=== PATIENT | female | born 1980 | race Two or more races ===

== ENCOUNTER 2019-06-27 09:25 | Emergency (ER) | payer OTHER ==
[~2019-06-27] VITALS: Ht 154.9 cm; Wt 65.3 kg
[~2019-06-27 09:25] MED LIST: DEXL60CA3
--- NOTE | 2019-06-27 09:37 | NUR ---
RATNA, C/O FLU LIKE SYMPTOMS X1 AND BILATERAL NECK PAIN, TO ER BED 7, HOOKED TO MONITOR, CHANGED TO HOSP [facility], PROVIDED W WARM BLANKET, AWAITING MD WINN
[2019-06-27] MEDS ORDERED: ALBUTEROL FS 2.5 MG/3 ML VIAL.NEB NEB ONE (10:00)
[2019-06-27] MEDS ORDERED: IPRATROPIUM NEB FS 0.5 MG/2.5 ML AMPUL.NEB NEB ONE (10:00)
[2019-06-27] MEDS ORDERED: ALBUTEROL FS 2.5 MG/3 ML VIAL.NEB ONE (10:09)
[2019-06-27] MEDS ORDERED: IPRATROPIUM NEB FS 0.5 MG/2.5 ML AMPUL.NEB ONE (10:09)
--- NOTE | 2019-06-27 11:00 | NUR ---
Patient discharged to home in stable condition. Written and verbal after care instructions given. Patient verbalizes understanding of instruction.
[2019-06-27 11:04] VITALS: BP 124/71
== END 2019-06-27 11:04 | disposition home or self-care (01) ==
LOC: ER 09:26
DX: J40 Bronchitis, not specified as acute or chronic (principal); G35 Multiple sclerosis; F17.200 Nicotine dependence, unspecified, uncomplicated; Z98.890 Other specified postprocedural states; Z79.899 Other long term (current) drug therapy
CPT/HCPCS: 71045-TC

== ENCOUNTER 2019-06-30 07:15 | Emergency (ER) | payer OTHER ==
[~2019-06-30] VITALS: Ht 154.9 cm; Wt 65.3 kg
[2019-06-30 07:15] VITALS: BP 125/77
[2019-06-30] MEDS ORDERED: KETOROLAC TROMETHAMINE 15 MG/ML VIAL ONE (07:46)
--- NOTE | 2019-06-30 07:55 | NUR ---
Patient discharged to home in stable condition. Written and verbal after care instructions given. Patient verbalizes understanding of instruction.
[2019-06-30] MEDS ORDERED: KETOROLAC TROMETHAMINE INJ 30 MG/ML VIAL IM ONE (08:00)
== END 2019-06-30 07:55 | disposition home or self-care (01) ==
LOC: ER 07:23
DX: J32.9 Chronic sinusitis, unspecified (principal); J02.9 Acute pharyngitis, unspecified; R59.0 Localized enlarged lymph nodes; G35 Multiple sclerosis; F17.200 Nicotine dependence, unspecified, uncomplicated; E66.9 Obesity, unspecified; Z68.27 Body mass index [BMI] 27.0-27.9, adult; Z98.890 Other specified postprocedural states; Z79.899 Other long term (current) drug therapy
CPT/HCPCS: 96372; 99283; J1885

== ENCOUNTER 2019-09-01 08:03 | Emergency (ER) | payer OTHER ==
[~2019-09-01] VITALS: Ht 154.9 cm; Wt 61.2 kg
--- NOTE | 2019-09-01 08:15 | NUR ---
SORE THROAT, COUGH AND CONGESTION AND FEVER X 3 DAYS. PATIENT A/OX4, BREATHING EVEN AND UNLABORED, NO SOB NOTED.
--- NOTE | 2019-09-01 09:24 | NUR ---
SWABS OBTAINED AND SENT TO LAB.
--- NOTE | 2019-09-01 10:17 | NUR ---
Patient discharged to home in stable condition. Written and verbal after care instructions given. Patient verbalizes understanding of instruction.
[2019-09-01 10:18] VITALS: BP 132/79
== END 2019-09-01 10:18 | disposition home or self-care (01) ==
LOC: ER 08:07
DX: J06.9 Acute upper respiratory infection, unspecified (principal); G35 Multiple sclerosis; R01.1 Cardiac murmur, unspecified; Z98.84 Bariatric surgery status
CPT/HCPCS: 36415; 71045-TC; 86403-TC; 87070-TC; U0002

== ENCOUNTER 2023-12-11 09:48 | Emergency (ER) | payer OTHER ==
[~2023-12-11] VITALS: Ht 154.9 cm; Wt 70.3 kg
[2023-12-11 09:57] VITALS: BP 135/79; TEMP 98.1; O2SAT 99
[2023-12-11] MEDS ORDERED: AMOX500C2 PO (10:17)
== END 2023-12-11 10:40 | disposition home or self-care (01) ==
LOC: ER 09:53
DX: H66.91 Otitis media, unspecified, right ear (principal); F17.200 Nicotine dependence, unspecified, uncomplicated

== ENCOUNTER 2024-11-27 21:07 | Emergency (ER) | payer OTHER ==
[~2024-11-27] VITALS: Ht 167.6 cm; Wt 72.6 kg
[~2024-11-27 21:07] MED LIST changes: +AMOX500C2 PO
[2024-11-27] MEDS ORDERED: ACETAMINOPHEN ES 500 MG TABLET PO ONE (22:00)
[2024-11-27] MEDS ORDERED: IBUPROFEN 400 MG TABLET PO ONE (22:00)
[2024-11-27 22:49] VITALS: BP 138/91; TEMP 98.2; O2SAT 99
== END 2024-11-27 22:51 | disposition left against medical advice (07) ==
LOC: ER 21:20
DX: G89.11 Acute pain due to trauma (principal); M25.521 Pain in right elbow; Z53.21 Procedure and treatment not carried out due to patient leaving prior to being seen by health care provider
CPT/HCPCS: 73030-TC; 73080-TC